=== PATIENT | female | born 1960 | race Asian ===

== ENCOUNTER 2016-10-31 12:29 | Emergency (ER) | payer OTHER ==
[~2016-10-31] VITALS: Ht 154.9 cm; Wt 55.4 kg
[~2016-10-31 12:29] MED LIST: ASPI81TA2 PO; LEVO50 PO; LOSA25TA21 PO
[2016-10-31] MEDS ORDERED: GABA-529 PO (13:11)
[2016-10-31] MEDS ORDERED: LOVA20 PO (13:11)
[2016-10-31] MEDS ORDERED: LOSA50TA37 PO (13:14)
[2016-10-31] MEDS ORDERED: GuaiFENesin/D-METHORPHAN/PHENYLEPH 5 ML LIQUID ORAL.SYG PO ONE (16:15)
[2016-10-31 16:27] VITALS: BP 140/81
== END 2016-10-31 16:28 | disposition home or self-care (01) ==
LOC: EMS 12:31
DX: J21.9 Acute bronchiolitis, unspecified (principal); E78.00 Pure hypercholesterolemia, unspecified; I10 Essential (primary) hypertension; Z79.82 Long term (current) use of aspirin
CPT/HCPCS: 71020; 99284

== ENCOUNTER 2019-03-31 11:32 | Emergency (ER) | payer SELFPAY ==
[~2019-03-31] VITALS: Ht 154.9 cm; Wt 61.4 kg
[~2019-03-31 11:32] MED LIST changes: -ASPI81TA2 PO; +ASPI81TA39 PO; +GABA-529 PO; -LOSA25TA21 PO; +LOSA50TA64 PO; +LOVA20 PO
[2019-03-31] MEDS ORDERED: ATOR10TA84 PO (11:45)
[2019-03-31] MEDS ORDERED: IBUPROFEN 600 MG TABLET PO ONE (12:00)
[2019-03-31] MEDS ORDERED: ACETAMINOPHEN 325 MG TABLET PO ONE (12:00)
[2019-03-31 13:20] VITALS: BP 126/71
== END 2019-03-31 13:27 | disposition home or self-care (01) ==
LOC: EMS 11:32
DX: M25.512 Pain in left shoulder (principal); I10 Essential (primary) hypertension; E03.9 Hypothyroidism, unspecified; Z79.899 Other long term (current) drug therapy; E78.00 Pure hypercholesterolemia, unspecified

== ENCOUNTER 2020-01-13 14:40 | Emergency (ER) | payer OTHER ==
[~2020-01-13] VITALS: Ht 152.4 cm; Wt 51.4 kg
[~2020-01-13 14:40] MED LIST changes: +ATOR10TA84 PO; -GABA-529 PO; +LOSA50TA37 PO; -LOSA50TA64 PO; -LOVA20 PO
[2020-01-13 14:46] VITALS: BP 127/83
[2020-01-13] MEDS ORDERED: ACETAMINOPHEN 500 MG TABLET PO ONE (15:15)
== END 2020-01-13 17:47 | disposition home or self-care (01) ==
LOC: EMS 14:44
DX: M17.12 Unilateral primary osteoarthritis, left knee (principal); E78.00 Pure hypercholesterolemia, unspecified; I10 Essential (primary) hypertension; E03.9 Hypothyroidism, unspecified; Z79.82 Long term (current) use of aspirin; Z79.899 Other long term (current) drug therapy